=== PATIENT | male | born 1980 | race Caucasian/White ===

== ENCOUNTER 2017-06-23 08:53 | Emergency (ER) | payer MEDICAID ==
[~2017-06-23 08:53] MED LIST: AMOXICILLIN PO; EXCEDRIN MIGRAI1 TA1; FLEXERIL10 MG PO; IBUPROFEN PO; LOTRIMIN30 GM TOP; MIRALAX255 GM PO; MOBIC PO; NO MEDICATIONS; PREDNISONE PO; VOLTAREN75 MG PO
[2017-06-23 10:03] LABS: URINE SOURCE CLEAN CATCH
[2017-06-23 10:06] LABS: URINE APPEARANCE CLEAR; URINE BILIRUBIN NEG (NEG); URINE BLOOD NEG (NEG); URINE COLOR YELLOW; URINE GLUCOSE NEG (NORM); URINE KETONE NEG (NEG); URINE LEUKOCYTE ESTERASE NEG (NEG); URINE NITRATE NEG (NEG); URINE PH 5.5 (5-8); URINE PROTEIN NEG (NEG); URINE SPECIFIC GRAVITY <=1.005 (1.003-1.035); URINE UROBILINOGEN 0.2 MG/DL (NORM)
[2017-06-23 10:15] LABS: MICRO INDICATED? NO
[2017-06-25 00:57] LABS: CHLAMYDIA TRACH Not Detected (Not Detected); N GONOR Not Detected (Not Detected)
== END 2017-06-23 10:19 | disposition home or self-care (01) ==
LOC: SED 08:53
PROVIDERS: Student in an Organized Health Care Education/Training Program
DX: Z20.2 Contact with and (suspected) exposure to infections with a predominantly sexual mode of transmission (principal); F17.200 Nicotine dependence, unspecified, uncomplicated
CPT/HCPCS: 81003; 87491; 87591; 96372; 99283; J0696